=== PATIENT | male | born 1940 ===

== ENCOUNTER 2018-06-26 09:23 | Emergency (ER) | payer MEDICARE ==
[2018-06-26 09:30] VITALS: BMI 26.2
[2018-06-26 09:31] VITALS: TEMP 97.8
[2018-06-26 10:45] LABS: BASO % 0.6 % (0.0-2.0); EOS # 0.6 K/uL (0.0-0.7); EOS % 7.4 % (0.0-4.0); HEMOGLOBIN 14.5 g/dL (12.0-18.0); LYMPH # 1.3 K/uL (1.0-4.3); LYMPH % 16.2 % (20.0-40.0); MEAN CELL VOLUME 85.1 fl (80.0-94.0); MEAN CORPUSCULAR HEMOGLOBIN 29.5 pg (27.0-31.0); MEAN CORPUSCULAR HGB CONC 34.7 g/dL (33.0-37.0); MEAN PLATELET VOLUME 7.7 fl (7.2-11.7); MONO # 0.7 K/uL (0.0-0.8); MONO % 8.1 % (0.0-10.0); NEUT # 5.4 K/uL (1.8-7.0); NEUT % 67.7 % (50.0-75.0); NRBC % 0.1 % (0.0-0.0); RBC 4.9 Mil/uL (4.40-5.90)
[2018-06-26 10:49] LABS: SQUAMOUS EPITHIAL < 1 /hpf (0-5); URINE BILIRUBIN NEGATIVE (NEGATIVE); URINE BLOOD NEGATIVE (NEGATIVE); URINE CLARITY CLEAR (Clear); URINE COLOR YELLOW (YELLOW); URINE GLUCOSE (UA) NEG (Normal); URINE LEUKOCYTE ESTERASE NEG Leu/uL (Negative); URINE PROTEIN NEGATIVE (NEGATIVE); URINE UROBILINOGEN 0.2-1.0 mg/dL (0.2-1.0)
[2018-06-26 10:53] LABS: PROTHROMBIN TIME 11.1 Seconds (9.8-13.1)
--- NOTE | 2018-06-26 10:54 | ED PDOC ---
HPI: Male Pain Time Seen by Provider: 06/26/18 09:56 Chief Complaint (Nursing): Male Genitourinary Chief Complaint (Provider): Blood In Urine History Per: Patient History/Exam Limitations: no limitations Onset/Duration Of Symptoms: Days (x1 day) Current Symptoms Are (Timing): Still Present Additional Complaint(s): 77 year old male, with a past medical history of prostatitis and gastritis, presenting for evaluation blood in urine. Patient states he is from [place], recently moved here with daughter, and is not yet is established with a PMD here. Patient reports first episode of blood in urine was 3 weeks ago with blood present after first urination after waking. Patient denies any subsequent episodes, back pain, dysuria, difficulty urinating, or urinary retention at the time. Patient states today he woke up and had another episode of blood in urine. Patient states this episode had more blood present, and noticed mild bilateral flank pain. Patient denies any falls or other trauma. Patient states he was compliant with medications and PMD follow up in [place]. PMD: None Past Medical History Reviewed: Historical Data, Nursing Documentation, Vital Signs Vital Signs: Last Vital Signs Temp 97.8 F 06/26/18 09:30 Pulse 57 L 06/26/18 09:30 Resp 17 06/26/18 09:30 BP 184/81 H 06/26/18 09:30 Pulse Ox 97 06/26/18 09:30 - Medical History PMH: Gastritis, HTN Other PMH: Prostatitis - Surgical History Surgical History: No Surg Hx - Family History Family History: States: Unknown Family Hx - Allergies Allergies/Adverse Reactions: Allergies Allergy/AdvReac Type Severity Reaction Status Date / Time No Known Allergies Allergy Verified 06/26/18 09:54 Review of Systems ROS Statement: Except As Marked, All Systems Reviewed And Found Negative Genitourinary Male: Positive for: Other (blood in urine). Negative for: Dysuria, Frequency, Incontinence, Penile Discharge Physical Exam - Reviewed Nursing Documentation Reviewed: Yes Vital Signs Reviewed: Yes - Physical Exam Appears: Positive for: Non-toxic, No Acute Distress Head Exam: Positive for: ATRAUMATIC, NORMAL INSPECTION, NORMOCEPHALIC Skin: Positive for: Normal Color, Warm, Dry. Negative for: Rash Eye Exam: Positive for: EOMI, Normal appearance, PERRL ENT: Positive for: Normal ENT Inspection Neck: Positive for: Normal, Painless ROM, Supple Cardiovascular/Chest: Positive for: Regular Rate, Rhythm Respiratory: Positive for: Normal Breath Sounds. Negative for: Respiratory Distress Gastrointestinal/Abdominal: Positive for: Normal Exam, Soft. Negative for: Tenderness Back: Positive for: Normal Inspection. Negative for: L CVA Tenderness, R CVA Tenderness, Vertebral Tenderness Extremity: Positive for: Normal ROM. Negative for: Pedal Edema, Swelling Neurologic/Psych: Positive for: Alert, Oriented (x3). Negative for: Motor/Sensory Deficits - Laboratory Results Result Diagrams: 06/26/18 10:40 06/26/18 10:40 - ECG O2 Sat by Pulse Oximetry: 97 (RA) Pulse Ox Interpretation: Normal Medical Decision Making Medical Decision Makin Plan: Workup for renal stones, obstruction, cystitis/uti. Labs sent. Bladder and renal US ordered. Will reassess patient. 1210: UA shows no infection and gross or small, microscopic blood. US shows normal bladder and bilateral renal cysts, but renal function is normal. Patient with normal CBC. Patient given referral to urology and advised to follow up with PMD. Vitals WNL. Return parameters discussed. Scribe Attestation: Documented by Davis Rosado, acting as a scribe for Amanda Wren MD. Provider Scribe Attestation: All medical record entries made by the Scribe were at my direction and personally dictated by me. I have reviewed the chart and agree that the record accurately reflects my personal performance of the history, physical exam, medical decision making, and the department course for this patient. I have also personally directed, reviewed, and agree with the discharge instructions and disposition. Disposition - Clinical Impression Clinical Impression: Hematuria - Patient ED Disposition Is Patient to be Admitted: No Counseled Patient/Family Regarding: Studies Performed, Diagnosis, Need For Followup - Disposition Referrals: [facility] [Outside] Jarvis Egan Jr., MD [Staff Provider] - FAMILY PROVIDER,NO [Primary Care Provider] - Disposition: Routine/Home Disposition Time: 12:10 Condition: IMPROVED Additional Instructions: Follow up in clinic and with urology (as referred). Discuss high blood pressure with your doctor. Continue to take medications as prescribed by previous doctors. Return to the emergency department if symptoms worsen or if new symptoms develop including difficulty urinating, urinary incontinence, or abdominal pain. Instructions: Blood in the Urine (Hematuria) in Adults, Blood in the Urine (Hematuria), Adult (DC) Forms: [email or web address] (Kyrgyz), [employer] (Burmese) Print Language: ALBANIAN
[2018-06-26 10:55] LABS: ALB/GLOB RATIO 1.1 (1.0-2.1); ALBUMIN 3.8 g/dL (3.5-5.0); ALT/SGPT 45 U/L (21-72); AST/SGOT 39 U/L (17-59); BLOOD UREA NITROGEN 13 mg/dl (9-20); CALCIUM 8.8 mg/dL (8.4-10.2); GFR NON-AFRICAN AMERICAN > 60
[2018-06-26 10:56] LABS: PARTIAL THROMBOPLASTIN TIME 34.5 Seconds (25.6-37.1)
--- NOTE | 2018-06-26 11:32 | US ---
Date of service: 06/26/2018 PROCEDURE: Ultrasound of the Kidneys HISTORY: hematuria COMPARISON: None available. TECHNIQUE: Sonogram of the kidneys. FINDINGS: RIGHT KIDNEY: Measures: 9.6 x 5.5 x 5.5 cm. Upper pole cyst measuring 1.7 x 1.7 x 1.7 cm. Normal in size, contour and echogenicity. No stone, solid mass lesion or hydronephrosis visualized. LEFT KIDNEY: Measures: 11.1 x 5.8 x 6.0 cm. Midpole cyst measuring 1.3 x 1.3 x 1.4 cm. Normal in size, contour and echogenicity. No stone, solid mass lesion or hydronephrosis visualized. OTHER FINDINGS: Postvoid urinary bladder volume measures 12.9 cc. Prostatomegaly with volume measuring 102.3 cc. Bilateral ureteral jets were visualized. IMPRESSION: Unremarkable renal sonogram. No significant postvoid residual volume. Prostatomegaly.
--- NOTE | 2018-06-26 11:41 | US ---
Date of service: 06/26/2018 PROCEDURE: Ultrasound of the Kidneys and Bladder HISTORY: hematuria COMPARISON: None available. TECHNIQUE: Sonogram of the kidneys and bladder. FINDINGS: RIGHT KIDNEY: Measures: 9.6 x 5.5 x 5.5 cm. Upper pole cyst measuring 1.7 x 1.7 x 1.7 cm. Normal in size, contour and echogenicity. No stone, solid mass lesion or hydronephrosis visualized. LEFT KIDNEY: Measures: 11.1 x 5.8 x 6.0 cm. Midpole cyst measuring 1.3 x 1.3 x 1.4 cm. Normal in size, contour and echogenicity. No stone, solid mass lesion or hydronephrosis visualized. OTHER FINDINGS: Prevoid urinary bladder volume measures 188.3 cc. Postvoid urinary bladder volume measures 12.9 cc. Prostatomegaly with volume measuring 102.3 cc. Bilateral ureteral jets were visualized. IMPRESSION: Unremarkable renal sonogram. No significant postvoid residual volume. Prostatomegaly.
[2018-06-26 12:25] VITALS: BP 148/70; PULSE 56; RESP 16
[2018-06-27 19:33] VITALS: O2SAT 97
== END 2018-06-26 12:33 | disposition home or self-care (01) ==
LOC: H.ER 09:23 → SUPCPDRO 09:23 → H.ER 12:33
DX: N28.1 Cyst of kidney, acquired (principal); I10 Essential (primary) hypertension